=== PATIENT | male | born 1975 | race African-American/Black ===

== ENCOUNTER 2016-11-28 06:56 | Emergency (ER) | payer OTHER ==
[2016-11-28] MEDS ORDERED: predniSONE 20 MG TAB ONE (07:53)
[2016-11-28] MEDS ORDERED: AMOXicillin 250 MG CAP ONE (07:53)
--- NOTE | 2016-11-28 07:56 | RAD ---
PA AND LATERAL CHEST: Date: 11/28/16 INDICATION: Shortness of breath. Dyspnea. Productive cough. COMPARISON: Prior single view of chest dated 05/17/16. IMPRESSION: 1. Low lung volumes. 2. Left basilar atelectasis likely related to poor inspiration. COMMENTS: No air space consolidation or pleural effusion is evident. No acute osseous abnormalities noted. POS: [facility]
--- NOTE | 2016-11-28 08:02 | ERRECORD ---
[facility] EMERGENCY RECORD HPI SHORTNESS OF BREATH (07:05 JLOY) CHIEF COMPLAINT: Patient presents for evaluation of shortness of breath, Patient presents for evaluation of Pt with 2 days of sore throat. Yesterday developed cough and SOB. Worse this am with chest tightness. Coughing up white sputum. HISTORIAN: History provided by patient. LOCATION: Symptoms are generalized. QUALITY: Symptoms described as tightness, Symptoms described as wheezing, Pain is dull in nature. TIME COURSE: Gradual onset of symptoms, Symptoms are worsening. ASSOCIATED WITH: No associated chills, Associated with cough, Associated with chest pain, Associated with dyspnea on exertion, Associated with fever, subjective, No associated nausea, Associated with upper respiratory infection, No associated vomiting. EXACERBATED BY: Patient's condition exacerbated by nothing. RELIEVED BY: Patient's condition relieved by nothing. ROS (07:06 JLOY) CONSTITUTIONAL: Historian denies chills, reports fever. EYES: Historian denies eye pain, denies eye redness, denies eye discharge. ENT: Historian denies rhinorrhea, reports sore throat. CARDIOVASCULAR: Historian reports chest pain. RESPIRATORY: Historian reports cough, reports shortness of breath, reports sputum. GI: Historian denies abdominal pain, denies diarrhea, denies nausea, denies vomiting. GENITOURINARY MALE: Historian denies dysuria, denies hematuria. PAST MEDICAL HISTORY MEDICAL HISTORY: Flu vaccine up to date, Tetanus immunization up to date, Pneumococcal vaccine not up to date, Past medical history includes neurological disease, ischemic cerebral vascular accident, generalized seizures, stomach ulcer. (07:07 BDON) MALE SURGICAL HISTORY: right thumb surgery. (07:07 BDON) PSYCHIATRIC HISTORY: no history of suicidal ideations, No history of suicide attempts, No history of hallucinations, No history of homicidal ideations, No history of violence towards others, No previous psychiatric history. (07:07 BDON) SOCIAL HISTORY: Patient currently uses tobacco, smokes cigarettes, Patient drinks socially, every week, Patient denies drug use,. Lives at home, alone,. (07:07 BDON) Patient currently uses tobacco, smokes cigarettes, daily, Patient smokes 1 pack per day. (07:29 JLOY) NOTES: Nursing records reviewed, Agree with nursing records. (07:29 JLOY) &a-1R&a+25V*p+0X*[id number]*c202B*c15G*c2P*p-0X&a-25V&a+1R Name: Benjamin Marley : 1975 M41 MedRec: [id number] AcctNum: [id number] Prepared: Sat Nov 28, 2016 08:10 by Interface Page 1 of 3 pMD [facility] EMERGENCY RECORD KNOWN ALLERGIES No Known Allergies (Unconfirmed) No Known Drug Allergies No Known Drug Intolerances (Unconfirmed) CURRENT MEDICATIONS (07:05 BDON) unknown seizure medication VITAL SIGNS VITAL SIGNS: Pulse: 94, Resp: 38, Temp: 99.6 (Oral), Pain: 9, O2 sat: 97, Time: 11/28/2016 06:58. (06:58 MBOS) BP: 140/95, Pulse: 96, Resp: 23, O2 sat: 97neb, Time: 11/28/2016 07:05. (07:05 EPIE) BP: 130/73, Pulse: 95, Resp: 24, O2 sat: 94 on Room Air, Time: 11/28/2016 07:29. (07:29 EPIE) BP: 131/71, Pulse: 94, Resp: 23, Temp: 99.6 ORAL, Pain: 8, O2 sat: 95 on ra, Time: 11/28/2016 07:59. (07:59 EPIE) PHYSICAL EXAM (07:06 JLOY) CONSTITUTIONAL: Vital Signs Reviewed, Patient appears non toxic, Patient alert and oriented to person, place and time. EYES: Eye exam included findings of eyelids normal to inspection, Pupils equally round and reactive to light, Conjunctiva normal. ENT: Pharynx exam normal, Uvula exam normal, Tonsil exam normal, Mouth exam normal, mucous membranes moist. NECK: Neck exam included findings of normal range of motion, Trachea midline. RESPIRATORY CHEST: Respiratory exam included findings of no respiratory distress, Wheezing present, scattered, Breath sounds diminished, to bilateral upper lobes, to bilateral lower lobes. CARDIOVASCULAR: Cardiovascular exam included findings of heart rate regular rate and rhythm, Heart sounds normal. ABDOMEN MALE: Abdominal exam included findings of abdomen nontender, Bowel sounds normal. UPPER EXTREMITY: Upper extremity exam included findings of inspection normal, Radial pulse normal, no cyanosis, no clubbing, no edema. LOWER EXTREMITY: Lower extremity exam included findings of inspection normal, no edema, no calf tenderness. NEURO: Austin coma scale 15, Neuro exam findings include patient oriented to person, place and time, Speech normal. SKIN: Skin exam included findings of skin warm, dry, and normal in color, no rash. PSYCHIATRIC: Normal affect. MEDICATION ADMINISTRATION SUMMARY Drug Name: DuoNeb, Dose Ordered: 1 amp(s), Route: Inhaler, Status: &a-1R&a+25V*p+0X*[id number]*c202B*c15G*c2P*p-0X&a-25V&a+1R Name: Benjamin Marley : 1975 M41 MedRec: [id number] AcctNum: [id number] Prepared: Sat Nov 28, 2016 08:10 by Interface Page 2 of 3 pMD [facility] EMERGENCY RECORD Canceled, Time: 07:09 11/28/2016, Drug Name: predniSONE oral, Dose Ordered: 60 mg, Route: Oral, Status: Given, Time: 08:00 11/28/2016, Drug Name: amoxicillin, Dose Ordered: 500 mg, Route: Oral, Status: Given, Time: 08:00 11/28/2016, Drug Name: *DuoNeb, Dose Ordered: 3 mL, Route: Nebulize, Status: Given, Time: 07:05 11/28/2016, *Additional information available in notes, Detailed record available in Medication Service section. DOCTOR NOTES (07:28 JLOY) TEXT: Pt denied improvement but no wheezes on exam now and improved air flow. Mildly increased WOB but better than initial. Pt now acknowledges daily cough for at least the last month. PROBLEM LIST No recorded problems DIAGNOSIS (07:51 JLOY) FINAL: PRIMARY: Acute bronchitis. PRESCRIPTION (07:51 JLOY) albuterol sulfate inhalation: HFA AEROSOL WITH ADAPTER (GM) : 90 mcg : INHALATION : Quantity: 2 Unit: puff(s) Route: INHALATION Schedule: every 4 hours prn Dispense: 1 May substitute. Refills: No Refills . NOTES: Please dispense one spacer to be used with every use of the inhaler No Refills. amoxicillin: CAPSULE (HARD, SOFT, ETC.) : 500 mg : ORAL : Quantity: 500 Unit: mg Route: ORAL Schedule: 3 times a day Dispense: 10 DAYS May substitute. Refills: No Refills . NOTES: No Refills. predniSONE oral: TABLET : 20 mg : ORAL : Quantity: 40 Unit: mg Route: ORAL Schedule: once a day Dispense: 5 DAYS May substitute. Refills: No Refills . NOTES: ^s=No Refills No Refills. DISPOSITION PATIENT: Disposition Type: Discharge, Disposition: *Discharge Home. (07:51 AYLA) Patient left the department. (08:04 VEE) Silverio: TIKA=ZENIA Esparza, Loli BAXTER=ZENIA Estrada, Judy AGUILA=MD Kris, Marshall JUAREZ=ZENIA Vasquez, Natalia &a-1R&a+25V*p+0X*[id number]*c202B*c15G*c2P*p-0X&a-25V&a+1R Name: Benjamin Marley Kim : 1975 M41 MedRec: [id number] AcctNum: [id number] Prepared: Yosef Nov 28, 2016 08:10 by Interface Page 3 of 3 pMD MTDD
--- NOTE | 2016-11-28 08:06 | PICIS ---
[facility] EMERGENCY RECORD TRIAGE (07:02 MBOS) TRIAGE NOTES: shortness of breath, productive cough. (07:02 MBOS) PATIENT: NAME: Benjamin Marley, AGE: 41, GENDER: male, : Sat 1975, TIME OF GREET: Sat Nov 28, 2016 06:57, PREFERRED LANGUAGE: Mohawk, ETHNICITY: Not or , ECODE BILLING MAP: [facility] ER, SSN: [id number], Zip Code: [address], KG WEIGHT: [phone], PHONE: , , , PERSON ID: [id number], PCP: Estevan NAVARRETE POLLACHI. (07:02 MBOS) COMPLAINT: SOB. (07:02 MBOS) ADMISSION: URGENCY: 3 Urgent, ADMISSION SOURCE: Home, TRANSPORT: CAR, BED: ER -04. (07:02 MBOS) ASSESSMENT: Assessment: Productive cough, described as white, chest pain with bodyaches, Symptoms began 2 days ago. (07:07 BDON) SIRS SCORING: Heart Rate 55-109 (0), Temp range 96.8-101.1 (0), respiratory rate 35-49 (3). (07:07 BDON) TREATMENTS IN PROGRESS: Treatments given Prehospital: none. (07:07 BDON) PROVIDERS: TRIAGE NURSE: Natalia Vasquez RN. (07:02 MBOS) VITAL SIGNS: Pulse 94, Resp 38, Temp 99.6, (Oral), Pain 9, O2 Sat 97, Time 11/28/2016 06:58. (06:58 MBOS) PREVIOUS VISIT ALLERGIES: No Known Drug Intolerances. (07:02 MBOS) No Known Drug Intolerances. (07:07 BDON) KNOWN ALLERGIES No Known Allergies (Unconfirmed) No Known Drug Allergies No Known Drug Intolerances (Unconfirmed) CURRENT MEDICATIONS (07:05 BDON) unknown seizure medication VITAL SIGNS VITAL SIGNS: Pulse: 94, Resp: 38, Temp: 99.6 (Oral), Pain: 9, O2 sat: 97, Time: 11/28/2016 06:58. (06:58 MBOS) BP: 140/95, Pulse: 96, Resp: 23, O2 sat: 97neb, Time: 11/28/2016 07:05. (07:05 EPIE) BP: 130/73, Pulse: 95, Resp: 24, O2 sat: 94 on Room Air, Time: 11/28/2016 07:29. (07:29 EPIE) BP: 131/71, Pulse: 94, Resp: 23, Temp: 99.6 ORAL, Pain: 8, O2 sat: 95 on ra, Time: 11/28/2016 07:59. (07:59 EPIE) NURSING ASSESSMENT: HEAD-TO-TOE (07:03 EPIE) CONSTITUTIONAL: Patient arrives ambulatory, Unsteady gait, Assistance to cart, History obtained from patient, Patient appears, uncomfortable, Patient cooperative, Patient alert, Oriented to person, place and time, Skin warm, Skin dry, Skin normal in color, Mucous membranes pink, Mucous &a-1R&a+25V*p+0X*p3604K*c202B*c15G*c2P*p-0X&a-25V&a+1R Name: Benjamin Marley : 1975 M41 MedRec: [id number] AcctNum: [id number] Prepared: Sat Nov 28, 2016 08:16 by Interface Page 1 of 9 pMD [facility] EMERGENCY RECORD membranes moist, Patient is well-groomed, shortness of breath, productive cough. Reports CP with breathing and coughing. PAIN: aching pain, midsternal chest, Onset of pain 11/28/2016, on a scale 0-10 patient rates pain as 9. SKIN: Skin assessment findings include skin warm, Skin dry, Skin normal in color. NEURO: Able to close eyes, Face symmetrical, Speech normal. ENT: Nasal assessment findings include nose normal to inspection, Sinuses normal, Nasal mucosa normal, Congestion, bilaterally, Mouth and throat assessment findings include mouth inspection normal, Uvula normal, Tonsils normal, Mucous membranes pink, and moist, Able to swallow, Speech normal, Notes: Pt reports sore throat started after cough. RESPIRATORY/CHEST: Lungs auscultated, Breath sounds with wheezing, Respiratory assessment findings include respiratory effort easy, Converses, in short phrases, Neck and chest exam findings include trachea midline, Chest expansion equal, Chest movement symmetrical, Associated with cough, productive of, yellow sputum. CARDIOVASCULAR: Cardiovascular assessment findings include heart rate normal, Heart sounds normal, S1, S2. ABDOMEN: Abdomen assessment findings include abdomen symmetrical, Abdomen soft, no associated nausea, no associated vomiting, no associated diarrhea. NURSING PROCEDURE: BREAD MOLDER (07:06 EPIE) BREAD MOLDER: Patient placed on saw tailer, Patient placed on non-invasive blood pressure monitor, with disposable blood pressure cuff applied, Patient placed on continuous pulse oximetry, Adult/pediatric oxisensor applied. FOLLOW-UP: After procedure, alarms set and on, After procedure, patient tolerating monitoring. NURSING PROCEDURE: DISCHARGE NOTE (07:59 EPIE) DISCHARGE: Patient discharged to home, ambulating without assistance, friend driving, accompanied by friend, Summary of Care printed/ provided, Discharge instructions given to patient, Simple or moderate discharge teaching performed, Prescriptions given and instructions on side effects given, Name of prescription(s) given: amoxcillin, prednisone, albuterol, Above person(s) verbalized understanding of discharge instructions and follow-up care. BELONGINGS: Belongings and valuables with patient upon arrival to the Emergency Department include:, Belongings and valuables with patient at time of discharge include:, Belongings remain with patient, Valuables remain with patient. VITAL SIGNS: BP: 131, / 71, Pulse: 94, Resp: 23, Temp: 99.6 ORAL, Pain: 8, O2 sat: 95, on: ra. NURSING PROCEDURE: EKG CHART (07:02 EPIE) &a-1R&a+25V*p+0X*h2621K*c202B*c15G*c2P*p-0X&a-25V&a+1R Name: Benjamin Marley : 1975 M41 MedRec: [id number] AcctNum: [id number] Prepared: Sat Nov 28, 2016 08:16 by Interface Page 2 of 9 pMD [facility] EMERGENCY RECORD EK lead EKG performed on the left chest, done by Loli KNUTSON, first EKG, Notes: EKG @ 0700. FOLLOW-UP: After procedure, EKG for interpretation given to Dr. Kris KELLEY. NURSING PROCEDURE: ENT (07:13 EPIE) PATIENT IDENTIFIER: Patient actively involved in identification process, Patient's identity verified by patient stating name. ENT: Nasal swab collected, labeled in the presence of the patient and sent to lab for testing of, influenza A, influenza B. FOLLOW-UP: After procedure, no further bleeding from nose. NURSING PROCEDURE: NURSE NOTES (07:31 EPIE) NURSES NOTES: Notes: Patient resting with family at bedside. Pt denies feeling better at this time after neb. Pt has decreased wheezing. Awaiting results at this time. ERMD made aware. NURSING PROCEDURE: RESPIRATORY INTERVENTIONS RESPIRATORY INTERVENTIONS: Pre-intervention breath sounds with wheezing, Pre-intervention oxygen saturation 94%, single pulse oximetry reading, Patient given ALBUTEROL with ATROVENT, Single dose nebulizer. (07:05 EPIE) FOLLOW-UP: After procedure, oxygen saturation 96%. (07:21 EPIE) NURSING PROCEDURE: TRANSPORT TO TESTS TRANSPORT TO TESTS: Patient transported to x-ray, via wheelchair, Accompanied by x-ray communications tower technician. (07:13 EPIE) Patient transported to x-ray, Accompanied by x-ray communications tower technician, Patient arrived in location at 0713, Patient departed location at 0721. (07:23 [facility]) FOLLOW-UP: After procedure, patient returned to emergency department. (07:20 EPIE) ORDER DETAILS Order Name: EKG 12 Lead in Emergency Room, Status: Canceled, Time: 07:08 11/28/2016, User: VEE, - Ordered for: MD Ponce Joshua, - Entered by: ZENIA Esparza Bettye - Sat Nov 28, 2016 07:04, - Quantity: 1, Order Name: EKG 12 Lead in Emergency Room, Status: Active, Time: 07:04 11/28/2016, User: AYLA, - Ordered for: MD Ponce Joshua, - Entered by: MD Ponce Joshua - Sat Nov 28, 2016 07:04, - Quantity: 1, Order Name: ERRT * Smal Vol Neb Initial Trmt, Status: Active, Time: 07:04 11/28/2016, User: AYLA, - Ordered for: MD Ponce Joshua, - Entered by: MD Ponce Joshua - Sat Nov 28, 2016 07:04, - Quantity: 1, &a-1R&a+25V*p+0X*s8951Y*c202B*c15G*c2P*p-0X&a-25V&a+1R Name: Benjamin Marley : 1975 M41 MedRec: [id number] AcctNum: [id number] Prepared: Sat Nov 28, 2016 08:16 by Interface Page 3 of 9 pMD [facility] EMERGENCY RECORD Order Name: ERRT * Smal Vol Neb Initial Trmt, Status: Canceled, Time: 07:08 11/28/2016, User: TIKA, - Ordered for: MD Ponce Joshua, - Entered by: ZENIA Esparza, Loli - Sat Nov 28, 2016 07:04, - Quantity: 1, Order Name: ERRT Pulse Oximeter ER, Status: Active, Time: 07:04 11/28/2016, User: AYLA, - Ordered for: MD Ponce Joshua, - Entered by: MD Ponce Joshua - Yosef Nov 28, 2016 07:04, - Quantity: 1, Order Name: Influenza A&B Ag Screen, Status: Active, Time: 07:07 11/28/2016, User: AYLA, - Ordered for: MD Ponce Joshua, - Entered by: MD Ponce Joshua - Yosef Nov 28, 2016 07:07, - Quantity: 1, Order Name: XR Chest Pa & Lat STANDARD, Status: Active, Time: 07:04 11/28/2016, User: AYLA, - Ordered for: MD Ponce Joshua, - Entered by: MD Ponce Joshua - Sat Nov 28, 2016 07:04, - Quantity: 1. MEDICATION ADMINISTRATION SUMMARY Drug Name: DuoNeb, Dose Ordered: 1 amp(s), Route: Inhaler, Status: Canceled, Time: 07:09 11/28/2016, Drug Name: predniSONE oral, Dose Ordered: 60 mg, Route: Oral, Status: Given, Time: 08:00 11/28/2016, Drug Name: amoxicillin, Dose Ordered: 500 mg, Route: Oral, Status: Given, Time: 08:00 11/28/2016, Drug Name: *DuoNeb, Dose Ordered: 3 mL, Route: Nebulize, Status: Given, Time: 07:05 11/28/2016, *Additional information available in notes, Detailed record available in Medication Service section. MEDICATION SERVICE amoxicillin: Order: amoxicillin (amoxicillin trihydrate) - Dose: 500 mg : Oral Ordered by: Marshall Ponce MD Entered by: Marshall Ponce MD Sat Nov 28, 2016 07:50 , Acknowledged by: Judy Estrada RN Sat Nov 28, 2016 07:51 Documented as given by: Judy Estrada RN Sat Nov 28, 2016 08:00 Patient, Medication, Dose, Route and Time verified prior to administration. Amount given: 500mg, Site: Medication administered P.O., Correct patient, time, route, dose and medication confirmed prior to administration, Patient advised of actions and side-effects prior to administration, Allergies confirmed and medications reviewed prior to administration. DuoNeb: Order: DuoNeb (ipratropium bromide/albuterol sulfate) - Dose: 3 mL : Nebulize Notes: (0.5mg Ipratropium Cameron/3mg Albuterol Sulfate = 3ml) &a-1R&a+25V*p+0X*y4676Z*c202B*c15G*c2P*p-0X&a-25V&a+1R Name: Benjamin Marley : 1975 1 MedRec: [id number] AcctNum: [id number] Prepared: Sat Nov 28, 2016 08:16 by Interface Page 4 of 9 D [facility] EMERGENCY RECORD Ordered by: Marshall Ponce MD Entered by: Marshall Ponce MD Sat Nov 28, 2016 07:04 Documented as given by: Judy Estrada RN Sat Nov 28, 2016 07:05 Patient, Medication, Dose, Route and Time verified prior to administration. Amount given: 3ml, Site: Medication administered via Hand-held nebulizer, With oxygen, Correct patient, time, route, dose and medication confirmed prior to administration, Patient advised of actions and side-effects prior to administration, Allergies confirmed and medications reviewed prior to administration. predniSONE oral: Order: predniSONE oral (prednisone) - Dose: 60 mg : Oral Ordered by: Marshall Ponce MD Entered by: Marshall Ponce MD Sat Nov 28, 2016 07:50 , Acknowledged by: Judy Estrada RN Sat Nov 28, 2016 07:50 Documented as given by: Judy Estrada RN Sat Nov 28, 2016 08:00 Patient, Medication, Dose, Route and Time verified prior to administration. Amount given: 60mg, Site: Medication administered P.O., Correct patient, time, route, dose and medication confirmed prior to administration, Patient advised of actions and side-effects prior to administration, Allergies confirmed and medications reviewed prior to administration. (CANCELED) DuoNeb: Order: DuoNeb (ipratropium bromide/albuterol sulfate) - Dose: 1 amp(s) : Inhaler Schedule: Now Ordered by: Marshall Ponce MD Entered by: Loli Esparza RN Sat Nov 28, 2016 07:04 Canceled by: Loli Esparza RN. Sat Nov 28, 2016 07:09 Cancel reason: duplicate order. HPI SHORTNESS OF BREATH (07:05 [facility]) CHIEF COMPLAINT: Patient presents for evaluation of shortness of breath, Patient presents for evaluation of Pt with 2 days of sore throat. Yesterday developed cough and SOB. Worse this am with chest tightness. Coughing up white sputum. HISTORIAN: History provided by patient. LOCATION: Symptoms are generalized. QUALITY: Symptoms described as tightness, Symptoms described as wheezing, Pain is dull in nature. TIME COURSE: Gradual onset of symptoms, Symptoms are worsening. ASSOCIATED WITH: No associated chills, Associated with cough, Associated with chest pain, Associated with dyspnea on exertion, Associated with fever, subjective, No associated nausea, Associated with upper respiratory infection, No associated vomiting. EXACERBATED BY: Patient's condition exacerbated by nothing. RELIEVED BY: Patient's condition relieved by nothing. &a-1R&a+25V*p+0X*t5920M*c202B*c15G*c2P*p-0X&a-25V&a+1R Name: Benjamin Marley : 1975 M41 MedRec: [id number] AcctNum: [id number] Prepared: Sat Nov 28, 2016 08:16 by Interface Page 5 of 9 pMD [facility] EMERGENCY RECORD ROS (07:06 [facility]) CONSTITUTIONAL: Historian denies chills, reports fever. EYES: Historian denies eye pain, denies eye redness, denies eye discharge. ENT: Historian denies rhinorrhea, reports sore throat. CARDIOVASCULAR: Historian reports chest pain. RESPIRATORY: Historian reports cough, reports shortness of breath, reports sputum. GI: Historian denies abdominal pain, denies diarrhea, denies nausea, denies vomiting. GENITOURINARY MALE: Historian denies dysuria, denies hematuria. PAST MEDICAL HISTORY MEDICAL HISTORY: Flu vaccine up to date, Tetanus immunization up to date, Pneumococcal vaccine not up to date, Past medical history includes neurological disease, ischemic cerebral vascular accident, generalized seizures, stomach ulcer. (07:07 BDON) MALE SURGICAL HISTORY: right thumb surgery. (07:07 BDON) PSYCHIATRIC HISTORY: no history of suicidal ideations, No history of suicide attempts, No history of hallucinations, No history of homicidal ideations, No history of violence towards others, No previous psychiatric history. (07:07 BDON) SOCIAL HISTORY: Patient currently uses tobacco, smokes cigarettes, Patient drinks socially, every week, Patient denies drug use,. Lives at home, alone,. (07:07 BDON) Patient currently uses tobacco, smokes cigarettes, daily, Patient smokes 1 pack per day. (07:29 JL) NOTES: Nursing records reviewed, Agree with nursing records. (07:29 JL) PHYSICAL EXAM (07:06 JLOY) CONSTITUTIONAL: Vital Signs Reviewed, Patient appears non toxic, Patient alert and oriented to person, place and time. EYES: Eye exam included findings of eyelids normal to inspection, Pupils equally round and reactive to light, Conjunctiva normal. ENT: Pharynx exam normal, Uvula exam normal, Tonsil exam normal, Mouth exam normal, mucous membranes moist. NECK: Neck exam included findings of normal range of motion, Trachea midline. RESPIRATORY CHEST: Respiratory exam included findings of no respiratory distress, Wheezing present, scattered, Breath sounds diminished, to bilateral upper lobes, to bilateral lower lobes. CARDIOVASCULAR: Cardiovascular exam included findings of heart rate regular rate and rhythm, Heart sounds normal. ABDOMEN MALE: Abdominal exam included findings of abdomen nontender, Bowel sounds normal. UPPER EXTREMITY: Upper extremity exam included findings of &a-1R&a+25V*p+0X*n2017H*c202B*c15G*c2P*p-0X&a-25V&a+1R Name: Benjamin Marley : 1975 M41 MedRec: [id number] AcctNum: [id number] Prepared: Sat Nov 28, 2016 08:16 by Interface Page 6 of 9 pMD [facility] EMERGENCY RECORD inspection normal, Radial pulse normal, no cyanosis, no clubbing, no edema. LOWER EXTREMITY: Lower extremity exam included findings of inspection normal, no edema, no calf tenderness. NEURO: [place] coma scale 15, Neuro exam findings include patient oriented to person, place and time, Speech normal. SKIN: Skin exam included findings of skin warm, dry, and normal in color, no rash. PSYCHIATRIC: Normal affect. EVENTS TRANSFER: Triage to Emergency Emergency Room -04. (Sat Nov 28, 2016 07:02 MBOS) Removed from Emergency Emergency Room -04. (08:04 EPIE) DOCTOR NOTES (07:28 JLOY) TEXT: Pt denied improvement but no wheezes on exam now and improved air flow. Mildly increased WOB but better than initial. Pt now acknowledges daily cough for at least the last month. PROBLEM LIST No recorded problems DIAGNOSIS (07:51 JLOY) FINAL: PRIMARY: Acute bronchitis. DISPOSITION PATIENT: Disposition Type: Discharge, Disposition: *Discharge Home. (07:51 JLOY) Patient left the department. (08:04 EPIE) INSTRUCTION (07:51 JLOY) DISCHARGE: BRONCHITIS, ABX [place] (ADULT). FOLLOWUP: Estevan NAVARRETE, [facility], Internal Medicine, [address] [place] [id number], [phone], Follow up with Primary Care Physician in 7-10 days. PRESCRIPTION (07:51 JLOY) albuterol sulfate inhalation: HFA AEROSOL WITH ADAPTER (GM) : 90 mcg : INHALATION : Quantity: 2 Unit: puff(s) Route: INHALATION Schedule: every 4 hours prn Dispense: 1 May substitute. Refills: No Refills . NOTES: Please dispense one spacer to be used with every use of the inhaler No Refills. amoxicillin: CAPSULE (HARD, SOFT, ETC.) : 500 mg : ORAL : Quantity: 500 Unit: mg Route: ORAL Schedule: 3 times a day Dispense: 10 DAYS May substitute. Refills: No Refills . NOTES: No Refills. &a-1R&a+25V*p+0X*m0559U*c202B*c15G*c2P*p-0X&a-25V&a+1R Name: Benjamin Marley : 1975 M41 MedRec: [id number] AcctNum: [id number] Prepared: Sat Nov 28, 2016 08:16 by Interface Page 7 of 9 pMD [facility] EMERGENCY RECORD predniSONE oral: TABLET : 20 mg : ORAL : Quantity: 40 Unit: mg Route: ORAL Schedule: once a day Dispense: 5 DAYS May substitute. Refills: No Refills . NOTES: ^s=No Refills No Refills. IMAGING *DISCHARGE INSTRUCTIONS RECEIPT: Image captured from scanner. (08:02 EPIE) *SUPPLY CHARGE SHEET: Image captured from scanner. (08:04 EPIE) *EKG: Image captured from scanner. (08:04 EPIE) ADMIN (07:51 [facility]) DIGITAL SIGNATURE: MD Ponce Joshua. RESULTS (07:42 [facility]) MICROBIOLOGY: Influenza A&B Ag Screen: [id number] Collection DT: Sat Nov 28, 2016 07:14, See comment below , @ ER ROOM#: ER-04 Source: Nasal swab Spec Desc: , Influenza A Antigen: NEGATIVE for the , presence of , INFLUENZA A Antigen , Influenza B Antigen: NEGATIVE for the , presence of , INFLUENZA B Antigen , The rapid Flu A&B test can distinguish between influenza A , Influenza A&B Ag Screen See comment below , and B viruses, but it does not differentiate influenza , Influenza A&B Ag Screen See comment below , subtypes. , Influenza A&B Ag Screen See comment below , Influenza A&B Ag Screen See comment below , Influenza A&B Ag Screen See comment below , Influenza A&B Ag Screen See comment below , characteristics of this device with human specimens infected , Influenza A&B Ag Screen See comment below , with the 2008 H1N1 influenza virus have not been , Influenza A&B Ag Screen See comment below , established. For example: this test cannot distinguish , Influenza A&B Ag Screen See comment below , influenza infections caused by novel H1N1 influenza A , Influenza A&B Ag Screen See comment below , viruses versus seasonal influenza A viruses. , Influenza A&B Ag Screen See comment below , , Influenza A&B Ag Screen See comment below , A negative result does not exclude influenza virus , Influenza A&B Ag Screen See comment below , infection; therefore, if more conclusive testing is desired, , Influenza A&B Ag Screen See comment below , follow up confirmatory &a-1R&a+25V*p+0X*l1615S*c202B*c15G*c2P*p-0X&a-25V&a+1R Name: Benjamin Marley : 1975 [facility] [place] MedRec: [id number] AcctNum: [id number] Prepared: WedNov 28, 2016 08:16 by Interface Page 8 of 9 D [facility] EMERGENCY RECORD testing is warranted., Influenza A&B Ag Screen See comment below . Silverio: TIKA=ZENIA Esparza, Loli BAXTER=ZENIA Estrada, Judy AGUILA=MD Kris, Marshall VALDEZ=MO Chao Kim MBOS=ZENIA Vasquez, Natalia &a-1R&a+25V*p+0X*g5114I*c202B*c15G*c2P*p-0X&a-25V&a+1R Name: Benjamin Marley : 1975 [facility] [place] MedRec: [id number] AcctNum: [id number] Prepared: [facility] Nov 28, 2016 08:16 by Interface Page 9 of 9 D [facility] MEDICATION RECONCILIATION You were seen in the Emergency Department on: Sat Nov 28, 2016 KNOWN ALLERGIES No Known Allergies (Unconfirmed) No Known Drug Allergies No Known Drug Intolerances (Unconfirmed) MEDICATIONS GIVEN WHILE IN THE EMERGENCY DEPARTMENT DuoNeb (ipratropium bromide/albuterol sulfate) - Dose: 3 milliliter(s) : Nebulize predniSONE oral (prednisone) - Dose: 60 milligram(s) : Oral amoxicillin (amoxicillin trihydrate) - Dose: 500 milligram(s) : Oral HOME MEDICATIONS CONTINUE PRESCRIBED unknown seizure medication Continue as prescribed PRESCRIPTIONS (3) Printed (3) albuterol sulfate inhalation : HFA AEROSOL WITH ADAPTER (GM) : 90 mcg : INHALATION Quantity: 2, Unit: puff(s), Route: INHALATION, Schedule: every 4 hours prn, Dispense: 1 amoxicillin : CAPSULE (HARD, SOFT, ETC.) : 500 mg : ORAL Quantity: 500, Unit: milligram(s), Route: ORAL, Schedule: 3 times a day, Dispense: 10 DAYS &a-1R&a+25V*p+0X*f3567I*c202B*c15G*c2P*p-0X&a-25V&a+1R Name: [place] : 1975 M41 MedRec: [id number] AcctNum: [id number] Prepared: Yosef Nov 28, 2016 08:16 by Interface pMD ANDID
== END 2016-11-28 07:59 | disposition home or self-care (01) ==
LOC: NAV ERS 06:56
DX: J20.9 Acute bronchitis, unspecified (principal); F17.210 Nicotine dependence, cigarettes, uncomplicated
CPT/HCPCS: 71020; 93005; 94640; 94760; J7506; J7620

== ENCOUNTER 2016-11-30 14:01 | Outpatient (CLI) | payer OTHER ==
[2016-11-30 15:42] LABS: #Lymphocytes 1.7 thou/uL (1.20-3.40); #Monocytes 0.4 thou/uL (0.11-0.59); #Neutrophils 6.7 thou/uL (1.40-6.50); %Basophils 0.3 % (0.0-1.0); %Eosinophils 0.3 % (0.0-10.0); %Lymphocytes 18.6 % (21.0-51.0); %Monocytes 4.9 % (0.0-10.0); Hematocrit 46.9 % (42.0-52.0); Mean Platelet Volume 6.7 fL (7.4-10.4); Red Blood Cell (RBC) Count 6.64 mill/uL (4.70-6.10); White Blood Cell (WBC) Count 8.9 thou/uL (4.8-10.8)
--- NOTE | 2016-12-01 08:19 | RAD ---
FRONTAL AND LATERAL IMAGING OF THE CHEST: Date: 11-30-16 Comparison: 11-28-16 History: Cough and acute bronchitis. FINDINGS: Increased linear density noted in both lung bases, stable. No pneumothorax, pleural fluid, focal co nsolidation or alveolar edema. IMPRESSION: Mild increased linear density in both lung bases, likely on the basis of volume loss. No lobar cons olidation or alveolar edema. POS: H
== END 2016-11-30 14:02 | disposition home or self-care (01) ==
LOC: NAV LAB 14:01
PROVIDERS: ATTEND Internal Medicine
DX: J20.9 Acute bronchitis, unspecified (principal)
CPT/HCPCS: 36415; 71020; 85025

== ENCOUNTER 2016-12-20 02:34 | Emergency (ER) | payer OTHER ==
[2016-12-20] MEDS ORDERED: Lorazepam 2 MG/ML VIAL ONE (03:14)
[2016-12-20 03:21] LABS: #Basophils 0.1 thou/uL (0.0-0.2); #Eosinphils 0.3 thou/uL (0.0-0.7); #Lymphocytes 5.2 thou/uL (1.20-3.40); #Monocytes 0.6 thou/uL (0.11-0.59); #Neutrophils 4.7 thou/uL (1.40-6.50); %Basophils 0.8 % (0.0-1.0); %Eosinophils 2.5 % (0.0-10.0); %Lymphocytes 47.5 % (21.0-51.0); %Monocytes 5.6 % (0.0-10.0); Hematocrit 46.3 % (42.0-52.0); Mean Platelet Volume 6.2 fL (7.4-10.4); Microcytosis MODERATE=15-30 cells (100X) (0-5/hpf); Ovalocytes SLIGHT = 2-5 cells (100X) (0-1/hpf); Red Blood Cell (RBC) Count 6.65 mill/uL (4.70-6.10); Tear Drops SLIGHT = 2-5 cells (100X) (0-1/hpf); White Blood Cell (WBC) Count 10.8 thou/uL (4.8-10.8)
[2016-12-20 03:38] LABS: Troponin I 0.094 ng/mL (< 0.028)
[2016-12-20 03:40] LABS: ALT (SGPT) 32 U/L (0-55); AST (SGOT) 26 U/L (5-34); Acetaminophen Less than 3.0 mcg/mL (10.0-30.0); Alkaline Phosphatase 69 U/L (40-150); Anion Gap 21 mmol/L (10-20); BUN (Urea Nitrogen) 15 mg/dL (8.9-20.6); Bilirubin, Total 0.6 mg/dL (0.2-1.2); CK (CPK) 282 U/L (30-200); Calc. Creatinine Clearance 0 mL/min (70-130); Calcium 9.4 mg/dL (7.8-10.44); Carbon Dioxide 19 mmol/L (22-29); Chloride 107 mmol/L (98-107); Estimated GFR-MDRD Greater than 90; Globulin 3.6 g/dL (2.4-3.5); Protein, Total 8.2 g/dL (6.0-8.3); Salicylate Less than 5.0 mg/dL (15.0-30.0)
[2016-12-20 04:28] LABS: Bilirubin Negative (Negative); Blood, Urine Negative (Negative); Glucose, Urine (Dipstick) Negative (Negative); Ketone, Urine Negative (Negative); Nitrite Negative (Negative); Protein, Urine (Dipstick) Negative (Neg-Trace); Urobilinogen 0.2 mg/dL (0.2-1.0)
[2016-12-20 04:29] LABS: Bacteria/HPF Rare-Few HPF (None Seen); RBC/HPF None Seen HPF (0-3); Squamous Epithelial 0-3 HPF (0-3)
[2016-12-20 04:37] LABS: Methadone Not Detected (NotDetected); Methamphetamine Not Detected (NotDetected)
--- NOTE | 2016-12-20 05:29 | ERRECORD ---
[facility] EMERGENCY RECORD ADMIN (02:41 ABWA) MERGE: Ambulance Sun Dec 20, 2016 02:23. HPI ALCOHOL ABUSE/SUBSTANCE ABUSE CHIEF COMPLAINT: Patient presents for evaluation of alcohol abuse, Patient presents for evaluation of mental status changes, Patient presents for evaluation of Pt was drinking an unknown amount this eveing and became weak and unsteady with a few episodes of confusion. Pt then went out with friends. Called girlfriend and reported he had had a seizure and was coming home. On arrival pt was very groggy and mostly unresponsive so girlfriend called 911. No witnessed seizure activity. (02:47 JLOY) HISTORIAN: History provided by patient's family, Additional history obtained from EMS. (02:47 JLOY) LOCATION: No localizing symptoms. (02:47 JLOY) TIME COURSE: Patient unable to describe onset of symptoms, There has been no change in the patient's symptoms over time. (02:47 JLOY) ASSOCIATED WITH: Associated with agitation, Associated with seizures. (02:47 JLOY) EXACERBATED BY: Patient's condition exacerbated by history of previous episodes. (02:47 JLOY) RELIEVED BY: Patient's condition relieved by nothing. (02:47 JLOY) E/M CAVEAT: Emergency room caveat invoked due to intoxicated patient. (02:49 JLOY) PAST MEDICAL HISTORY MEDICAL HISTORY: Flu vaccine up to date, Tetanus immunization up to date, Pneumococcal vaccine not up to date, Past medical history includes neurological disease, ischemic cerebral vascular accident, generalized seizures, stomach ulcer. (02:41 ABWA) MALE SURGICAL HISTORY: right thumb surgery. (02:41 ABWA) PSYCHIATRIC HISTORY: no history of suicidal ideations, No history of suicide attempts, No history of hallucinations, No history of homicidal ideations, No history of violence towards others, No previous psychiatric history. (02:41 ABWA) SOCIAL HISTORY: Patient currently uses tobacco, smokes cigarettes, Patient drinks socially, every week, Patient denies drug use,. Lives at home, alone,. Patient currently uses tobacco, smokes cigarettes, daily, Patient smokes 1 pack per day. (02:41 ABWA) NOTES: Nursing records reviewed, Agree with nursing records. (02:53 JLOY) KNOWN ALLERGIES No Known Allergies (Unconfirmed) No Known Drug Allergies (Unconfirmed) No Known Drug Intolerances CURRENT MEDICATIONS &a-1R&a+25V*p+0X*x3151K*c202B*c15G*c2P*p-0X&a-25V&a+1R Name: Benjamin Marley : 1975 M41 MedRec: [id number] AcctNum: [id number] Prepared: Jane Dec 20, 2016 06:21 by Interface Page 1 of 3 pMD [facility] EMERGENCY RECORD No recorded medications VITAL SIGNS VITAL SIGNS: Pain: 0, Time: 12/20/2016 02:35. (02:35 ABGA) BP: 135/84, Pulse: 87, Resp: 21, Pain: 0, O2 sat: 94 on Room Air, Time: 12/20/2016 02:55. (02:55 [facility]) BP: 129/74, Pulse: 82, O2 sat: 97 on 2L Oxygen, Time: 12/20/2016 03:29. (03:29 [facility]) BP: 120/77, Pulse: 81, Resp: 18, O2 sat: 98 on 2L Oxygen, Time: 12/20/2016 04:35. (04:35 [facility]) BP: 137/87, Pulse: 80, Resp: 16, Temp: 98.6 (Tympanic), Pain: 0, O2 sat: 99 on 2L Oxygen, Time: 12/20/2016 05:25. (05:25 ABWA) PHYSICAL EXAM (02:49 [facility]) CONSTITUTIONAL: Vital signs reviewed, Patient, confused, responsive to painful stimuli, Pt lethargic. Responds to tactile stimulation but rare intelligible words. Mostly he pushes the examiner's hand away and then goes back to sleep. HEAD: Head exam included findings of head atraumatic, normocephalic. EYES: Eye exam included findings of eyelids normal to inspection, Pupils equally round and reactive to light, Conjunctiva, injected bilaterally. ENT: Ear exam included findings of, left external ear normal, right external ear normal, tympanic membrane with effusion on left, tympanic membrane with effusion on the right, Mouth exam included findings of, mucous membranes dry. NECK: Neck exam included findings of normal range of motion, Trachea midline, no jugular venous distention, no cervical adenopathy. RESPIRATORY CHEST: Respiratory exam included findings of no respiratory distress, Breath sounds clear, No wheezing, No rales, No rhonchi, Chest exam included findings of chest movement symmetrical. CARDIOVASCULAR: Cardiovascular exam included findings of heart rate regular rate and rhythm, Heart sounds normal. ABDOMEN MALE: Abdominal exam included findings of abdomen tender, Pt pushes the examiners hands away when palpated on any part of his abdomen but soft to touch and no guarding., Bowel sounds normal, no distension. BACK: Back exam included findings of normal inspection. UPPER EXTREMITY: Upper extremity exam included findings of inspection normal, Radial pulse normal, no cyanosis, no clubbing, no edema. LOWER EXTREMITY: Lower extremity exam included findings of inspection normal, no edema. NEURO: Vidya coma scale, Eye opening: (2) - To pain, Verbal: (3) - Inappropriate words, Motor: (5) - Localizes Pain, GCS Total: 10, Speech, slurred. &a-1R&a+25V*p+0X*[id number]*c202B*c15G*c2P*p-0X&a-25V&a+1R Name: Benjamin Marley : 1975 M41 MedRec: [id number] AcctNum: [id number] Prepared: Jane Dec 20, 2016 06:21 by Interface Page 2 of 3 pMD [facility] EMERGENCY RECORD SKIN: Skin exam included findings of skin warm, dry, and normal in color. MEDICATION ADMINISTRATION SUMMARY Drug Name: Keppra intravenous, Dose Ordered: 500 mg, Route: IV Piggy Back, Status: Held, Time: 05:53 12/20/2016, Drug Name: LORazepam injection, Dose Ordered: 1 mg, Route: IV Push, Status: Given, Time: 03:17 12/20/2016, Drug Name: sodium chloride 0.9 % intravenous, Dose Ordered: 1000 mL, Route: IV Fluid Infusion, Status: Given, Time: 02:45 12/20/2016, Detailed record available in Medication Service section. DOCTOR NOTES TEXT: Pt had an episode of posturing with his whole body and heavy breathing consistent with seizure-like activity from previous visits. Resolved after a couple minutes. Ativan ordered. (03:17 [facility]) Dr. Mahajan accepted the transfer to [facility] ER. (05:20 [facility]) PROBLEM LIST No recorded problems DIAGNOSIS (05:21 [facility]) FINAL: PRIMARY: Acute alcohol intoxication, ADDITIONAL: Seizure. PRESCRIPTION No recorded prescriptions DISPOSITION PATIENT: Disposition Type: Transfer, Disposition: Transfer to [facility]. (05:21 [facility]) Patient left the department. (06:20 [facility]) Silverio: LINETTE=ZENIA Jeffers, Chelsey AGUILA=MD Kris, aMrshall BELL=ZENIA Garcia, Lacy &a-1R&a+25V*p+0X*[id number]*c202B*c15G*c2P*p-0X&a-25V&a+1R Name: Benjamin Marley : 1975 M41 MedRec: [id number] AcctNum: [id number] Prepared: Jane Dec 20, 2016 06:21 by Interface Page 3 of 3 pMD MTDD
--- NOTE | 2016-12-20 05:35 | PICIS ---
[facility] EMERGENCY RECORD ADMIN MERGE: [facility] [place] Dec 20, 2016 02:23. (02:41 ABWA) TRIAGE (02:37 ABWA) TRIAGE NOTES: ETOH, VOMITING, PASSING OUT. (02:37 ABWA) PATIENT: NAME: Benjamin Marley, AGE: 41, GENDER: male, : Sat 1975, TIME OF GREET: Sun Dec 20, 2016 02:35, PREFERRED LANGUAGE: Occitan, ETHNICITY: Not or , ECODE BILLING MAP: [facility] ER, SSN: [id number], Zip Code: [address], KG WEIGHT: [phone], PHONE: , , , PERSON ID: [id number], PCP: Gaby Alonso /Jose Eduardo. (02:37 ABWA) COMPLAINT: ETOH. (02:37 ABWA) ADMISSION: URGENCY: 3 Urgent, ADMISSION SOURCE: Home, TRANSPORT: AMBULANCE - [facility], BED: ER -04. (02:37 ABWA) SIRS SCORING: ERMD IN ROOM TO EVAL AT THIS TIME. (02:41 ABWA) TREATMENTS IN PROGRESS: Site: RAC, Gauge: 22, IV: .9NS. (02:41 ABWA) PROVIDERS: TRIAGE NURSE: Chelsey Jeffers RN. (02:37 ABWA) VITAL SIGNS: Pain 0, Time 12/20/2016 02:35. (02:35 ABWA) PREVIOUS VISIT ALLERGIES: No Known Drug Allergies. (02:37 ABWA) No Known Drug Allergies. (02:41 ABWA) KNOWN ALLERGIES No Known Allergies (Unconfirmed) No Known Drug Allergies (Unconfirmed) No Known Drug Intolerances CURRENT MEDICATIONS No recorded medications VITAL SIGNS VITAL SIGNS: Pain: 0, Time: 12/20/2016 02:35. (02:35 ABWA) BP: 135/84, Pulse: 87, Resp: 21, Pain: 0, O2 sat: 94 on Room Air, Time: 12/20/2016 02:55. (02:55 [facility]) BP: 129/74, Pulse: 82, O2 sat: 97 on 2L Oxygen, Time: 12/20/2016 03:29. (03:29 [facility]) BP: 120/77, Pulse: 81, Resp: 18, O2 sat: 98 on 2L Oxygen, Time: 12/20/2016 04:35. (04:35 [facility]) BP: 137/87, Pulse: 80, Resp: 16, Temp: 98.6 (Tympanic), Pain: 0, O2 sat: 99 on 2L Oxygen, Time: 12/20/2016 05:25. (05:25 ABWA) NURSING ASSESSMENT: FALL RISK (05:00 [facility]) FALL RISK: Use of level of consciousness altering agents with mentation or cognitive changes (3), Neurologic diagnosis (3), Total score 6, Fall risk. HENDRICH II FALL RISK: Hendrich II Fall Risk assessment findings include patient confused, disoriented or impulsive(4), male(1). &a-1R&a+25V*p+0X*j0657V*c202B*c15G*c2P*p-0X&a-25V&a+1R Name: Benjamin Marley : 1975 1 MedRec: [id number] AcctNum: [id number] Prepared: Jane Dec 20, 2016 06:27 by Interface Page 1 of 11 D [facility] EMERGENCY RECORD NURSING ASSESSMENT: NEURO (02:45 ABWA) GCS: (5) Localizing response to pain:, (4) Confused conversation:, (2) Opening to response to pain:, Result: 11. NEURO: Pupils equally round and reactive to light, GCS:, Eye opening: (2) - To pain, Verbal: (3) - Inappropriate words, Motor: (5) - Localizes Pain, GCS Total: 10. ENT: Tinnitus described as. NURSING PROCEDURE: BEDSIDE SIRS TESTING (05:00 [facility]) SCORES: Heart Rate 55-109 (0), Temp range 96.8-101.1 (0), respiratory rate 12-24 (0), Latest WBC 3-14.9 (0), Mental Status altered: no (0). NURSING PROCEDURE: SKID MAN SKID MAN: Cardiac monitoring indicated for mental status changes, Patient placed on panel monitor, Heart rate: 87, showing normal sinus rhythm, with no ST segment changes, Patient placed on non-invasive blood pressure monitor, with disposable blood pressure cuff applied, Patient placed on continuous pulse oximetry, Adult/pediatric oxisensor applied, Oxygen saturation 94%. (02:37 [facility]) Cardiac monitoring indicated for mental status changes, Patient placed on panel monitor, Patient placed on non-invasive blood pressure monitor, Patient placed on continuous pulse oximetry. (02:37 ABWA) SAFETY: Side rails up, Cart/Stretcher in lowest position, Family at bedside, Call light within reach. (02:37 ABWA) NURSING PROCEDURE: IV (03:15 ABWA) IV SITE 1: IV therapy indicated for hydration, IV therapy indicated for medication administration, IV established, to the left antecubital, using a 20 gauge catheter, in one attempt, IV site prepped with choraprep. FOLLOW-UP SITE 1: After procedure, 2x3 ensure dressing applied. SAFETY: Side rails up, Cart/Stretcher in lowest position, Family at bedside, Call light within reach, Hospital ID band on. NURSING PROCEDURE: NEURO CHECK GCS/NEURO/PUPILS: [place] Coma Scale:, Eye opening: (2) - To pain, Verbal: (4) - Confused/disoriented, Motor: (5) - Localizes Pain, GCS Total: 11. (03:45 ABWA) [place] Coma Scale:, Eye opening: (2) - To pain, Verbal: (3) - Inappropriate words, Motor: (4) - Withdraws to Pain, GCS Total: 9. (03:50 ABWA) Vidya Coma Scale:, Eye opening: (2) - To pain, Verbal: (4) - Confused/disoriented, Motor: (5) - Localizes Pain, GCS Total: 11. (05:00 [facility]) NOTES: 3 additional staff were required to perform this &a-1R&a+25V*p+0X*v2625U*c202B*c15G*c2P*p-0X&a-25V&a+1R Name: Benjamin Marley Kim : 1975 M41 MedRec: [id number] AcctNum: [id number] Prepared: Jane Dec 20, 2016 06:27 by Interface Page 2 of 11 pMD [facility] EMERGENCY RECORD procedure, due to patient being confused. (03:45 ABWA) NURSING PROCEDURE: NURSE NOTES NURSES NOTES: Notes: SEIZURE PRECAUTIONS, SIDE RAILS PADDED, FAMILY AT BEDSIDE, SUCTION SET UP,. (02:37 ABWA) Notes: PATIENT ENTIRE BODY STIFF, MAKING, RESP 28, SPITTING, SALIVA COMING FROM MOUTH, PATIENT RELAXED, TRIED TO SUCTION, PATIENT BITE ON YANKER, PATIENT STIFFENIG UP THEN RELAXING, YANKER INTACT, BREATHING RETURN TO 16 EVEN AND UNLABORED, PATEINT OPEN EYES AND GIRLFRIEND IN ROOM EXPLAINED TO PATIENT WHERE HE WAS, PATIENT CLOSED EYES AND SNORING, HOB REMAINS ELEVATED. (03:05 ABMA) Notes: PATIENT BROUGHT TO FACILITY BY EMS AND [facility], PATIENT BECOMES COMBATIVE WHEN ANYONE TOUCHES HIM TO DO ANY PROCEDURE, FRIEND AT BEDSIDE HAS "CALMING EFFECT" ON PATIENT. (02:45 ABWA) Notes: PATIENT REFUSES TO USE URINAL WHILE IN BED, PATIENT STOOD UP WITH STANDBY ASSIST, URINATED OVER 1000 OUTPUT, PATIENT LAUGHING, PATIENT RETURNED TO BED, NAD. (02:55 ABWA) Notes: REPORT TO LACY RN, RESP EQUAL AND UNLABORED, GCS REMAINS 10, FAMILY AT BEDSIDE, NO FURTHER SEIZURE TYPE ACTIVITY,. (04:15 ABWA) Notes: PT ASLEEP IN BED. RR EVEN AND UNLABORED. NSR PER MONITOR. VITAL SIGNS STABLE. HOB ELEVATED. GCS 11. NAD. GIRLFRIEND AT BEDSIDE. (05:00 [facility]) Notes: 500MG KEPPRA IVP NOT GIVEN TO PATIENT BECAUSE PT WAS NOT AVAILABLE AT [facility]. MD KRIS MADE AWARE. PT TO RECEIVE KEPPRA AT [facility] ED PER . (05:35 [facility]) Notes: PATIENT TO CT, ALL MONITORS TO CT WITH PATIENT, RN WITH PATIENT TO CT, O2@2L VIA NC REMAIN ON PATIENT, CT COMPLTERED, PATIENT RETURN TO ROOM, ALL MONITORS IN PLACE, PATIENT COUGH X2 DURING CT, ABLE TO CLEAR SECRETIONS WITHOUT DIFFICULITY. (03:30 ABWA) Notes: call to pharmacy, informed by pharmacy we do not have iv keppra anywhere at [facility], informed dr. ponce, per Dr. Ponce inform the main in report keppra not given and needs be given when [facility]. Informed Lacy KNUTSON to include this in her report to the main. (05:53 ABWA) NURSING PROCEDURE: OXYGEN THERAPY (02:45 ABWA) OXYGEN THERAPY: Oxygen therapy indicated for desaturation, Prior to procedure, breath sounds clear, Oxygen saturation 90%, by adult/pediatric oxisensor, single pulse oximetry reading, via nasal cannula, Notes: O2 SATURATION DECREASE TO 88-90% WHEN PATIENT ASLEEP AND SNORING, WILL INCREASE TO 96-98% WHEN AWAKE. FOLLOW-UP: After procedure, oxygen saturation 100%, After procedure, breath sounds clear, Notes: O2 SATS [id number]% WHILE SLEEPING. NURSING PROCEDURE: TRANSPORT TO TESTS (03:51 [facility]PEA) TRANSPORT TO TESTS: Patient transported to CT scan, Accompanied by x-ray gis mapping technician, Accompanied by nurse, Transported with advanced life support care, Patient arrived in location at 0330, Patient &a-1R&a+25V*p+0X*b8994G*c202B*c15G*c2P*p-0X&a-25V&a+1R Name: Benjamin Marley : 1975 M41 MedRec: [id number] AcctNum: [id number] Prepared: Jane Dec 20, 2016 06:27 by Interface Page 3 of 11 [facility] EMERGENCY RECORD departed location at 0347. ORDER DETAILS Order Name: Cardiac Profile w/CKMB & Troponin - I, Status: Active, Time: 02:45 12/20/2016, User: AYLA, - Ordered for: MD Ponce Joshua, - Entered by: MD Ponce Joshua - Jane Dec 20, 2016 02:45, - Quantity: 1, Order Name: CBC with Differential, Status: Active, Time: 02:45 12/20/2016, User: AYLA, - Ordered for: MD Ponce Joshua, - Entered by: MD Ponce Joshua - Jane Dec 20, 2016 02:45, - Quantity: 1, Order Name: CK (CPK), Status: Active, Time: 02:45 12/20/2016, User: AYLA, - Ordered for: MD Ponce Joshua, - Entered by: MD Ponce Joshua - Jane Dec 20, 2016 02:45, - Quantity: 1, Order Name: Comprehensive Metabolic Panel, Status: Active, Time: 02:45 12/20/2016, User: AYLA, - Ordered for: MD Ponce Joshua, - Entered by: MD Ponce Joshua - Sun Dec 20, 2016 02:45, - Quantity: 1, Order Name: CT Brain WO Con, Status: Active, Time: 02:46 12/20/2016, User: AYLA, - Ordered for: MD Ponce Joshua, - Entered by: MD Ponce Joshua - Sun Dec 20, 2016 02:46, - Quantity: 1, Order Name: Drug Screen, Serum, Status: Active, Time: 02:45 12/20/2016, User: AYLA, - Ordered for: MD Ponce Joshua, - Entered by: MD Ponce Joshua - Sun Dec 20, 2016 02:45, - Quantity: 1, Order Name: Drug Screen, Urine, Status: Active, Time: 02:45 12/20/2016, User: AYLA, - Ordered for: MD Ponce Joshua, - Entered by: MD Ponce Joshua - Sun Dec 20, 2016 02:45, - Quantity: 1, Order Name: EKG 12 Lead in Emergency Room, Status: Active, Time: 02:45 12/20/2016, User: AYLA, - Ordered for: MD Ponce Joshua, - Entered by: MD Ponce Joshua - Sun Dec 20, 2016 02:45, - Quantity: 1, Order Name: Lipase, Status: Active, Time: 02:45 12/20/2016, User: AYLA, - Ordered for: MD Ponce Joshua, - Entered by: MD Ponce Joshua - Sun Dec 20, 2016 02:45, - Quantity: 1, Order Name: Urinalysis w/ Rflx Microscopic, Status: Active, Time: 02:45 12/20/2016, User: AYLA, &a-1R&a+25V*p+0X*r6344M*c202B*c15G*c2P*p-0X&a-25V&a+1R Name: Benjamin Marley : 1975 M41 MedRec: [id number] AcctNum: [id number] Prepared: Jane Dec 20, 2016 06:27 by Interface Page 4 of 11 pMD [facility] EMERGENCY RECORD - Ordered for: MD Ponce Joshua, - Entered by: MD Ponce Joshua - Sun Dec 20, 2016 02:45, - Quantity: 1, Order Name: XR Chest 1 View Portable, Status: Active, Time: 02:45 12/20/2016, User: DEBORAHOZIEL, - Ordered for: MD Ponce Joshua, - Entered by: MD Ponce Joshua - Sun Dec 20, 2016 02:45, - Quantity: 1. MEDICATION ADMINISTRATION SUMMARY Drug Name: Keppra intravenous, Dose Ordered: 500 mg, Route: IV Piggy Back, Status: Held, Time: 05:53 12/20/2016, Drug Name: LORazepam injection, Dose Ordered: 1 mg, Route: IV Push, Status: Given, Time: 03:17 12/20/2016, Drug Name: sodium chloride 0.9 % intravenous, Dose Ordered: 1000 mL, Route: IV Fluid Infusion, Status: Given, Time: 02:45 12/20/2016, Detailed record available in Medication Service section. MEDICATION SERVICE Keppra intravenous: Order: Keppra intravenous (levetiracetam) - Dose: 500 mg : IV Piggy Back Ordered by: Marshall Ponce MD Entered by: MD Jane Avitia Dec 20, 2016 05:20 , Held by: Chelsey Jeffers RN WedDec 20, 2016 05:53 Reason: see nurses notes. LORazepam injection: Order: LORazepam injection (lorazepam) - Dose: 1 mg : IV Push Ordered by: Marshall Ponce MD Entered by: MD Jane Avitia Dec 20, 2016 03:15 Documented as given by: Chelsey Jeffers RN WedDec 20, 2016 03:17 Patient, Medication, Dose, Route and Time verified prior to administration. Amount given: 1MG, Amount wasted: 1MG, IV SITE #1 IVP, initial medication, Slowly, Catheter placement confirmed via flush prior to administration, IV site without signs or symptoms of infiltration during medication administration, No swelling during administration, No drainage during administration, IV flushed after administration, Correct patient, time, route, dose and medication confirmed prior to administration, Allergies confirmed and medications reviewed prior to administration, Patient in position of comfort, Side rails up, Cart in lowest position, Family at bedside. : Follow Up : _IV SITE #1:_, Patient in position of comfort, Side rails up, Cart in lowest position, Family at bedside, PATIENT REMAINS RESTING WITH EYES CLOSED, RESP EQUAL AND UNLABORED. (03:50 ABWA) sodium chloride 0.9 % intravenous: Order: sodium chloride 0.9 % intravenous (0.9 % sodium chloride) - Dose: 1000 mL : IV Fluid Infusion Schedule: Bolus &a-1R&a+25V*p+0X*h9640B*c202B*c15G*c2P*p-0X&a-25V&a+1R Name: Benjamin Marley : 1975 M41 MedRec: [id number] AcctNum: [id number] Prepared: [place] Dec 20, 2016 06:27 by Interface Page 5 of 11 [facility] EMERGENCY RECORD Ordered by: Marshall Ponce MD Entered by: Chelsey Jeffers RN [place] Dec 20, 2016 04:07 Documented as given by: Chelsey Jeffers RN [place] Dec 20, 2016 02:45 Patient, Medication, Dose, Route and Time verified prior to administration. IV SITE #1 IV fluids established for hydration, IV SITE #1 into right antecubital, IV SITE #1 1st bag hung, amount 1 Liter hung, IV SITE #1 Rate of bolus, wide open, via primary tubing, Catheter placement confirmed via flush prior to administration, IV site without signs or symptoms of infiltration during medication administration, No swelling during administration, No drainage during administration, IV flushed after administration, Correct patient, time, route, dose and medication confirmed prior to administration, Allergies confirmed and medications reviewed prior to administration, Patient in position of comfort, Side rails up, Cart in lowest position, Family at bedside, IVF IN PLACE AUTOMOTIVE SERVICE ASSISTANT. : Follow Up : _IV SITE #1:_, 031 IVF NOT INFUSING, IV SITE RAC NO LONGER PATENT, IV SITE DC, FLUIDS CHANNED TO NEW SITE RAC. (03:15 ABWA) HPI ALCOHOL ABUSE/SUBSTANCE ABUSE CHIEF COMPLAINT: Patient presents for evaluation of alcohol abuse, Patient presents for evaluation of mental status changes, Patient presents for evaluation of Pt was drinking an unknown amount this eveing and became weak and unsteady with a few episodes of confusion. Pt then went out with friends. Called girlfriend and reported he had had a seizure and was coming home. On arrival pt was very groggy and mostly unresponsive so girlfriend called 911. No witnessed seizure activity. (02:47 JLOY) HISTORIAN: History provided by patient's family, Additional history obtained from EMS. (02:47 JLOY) LOCATION: No localizing symptoms. (02:47 JLOY) TIME COURSE: Patient unable to describe onset of symptoms, There has been no change in the patient's symptoms over time. (02:47 JLOY) ASSOCIATED WITH: Associated with agitation, Associated with seizures. (02:47 JLOY) EXACERBATED BY: Patient's condition exacerbated by history of previous episodes. (02:47 JLOY) RELIEVED BY: Patient's condition relieved by nothing. (02:47 JLOY) E/M CAVEAT: Emergency room caveat invoked due to intoxicated patient. (02:49 JLOY) PAST MEDICAL HISTORY MEDICAL HISTORY: Flu vaccine up to date, Tetanus immunization up to date, Pneumococcal vaccine not up to date, Past medical history includes neurological disease, ischemic cerebral vascular accident, generalized seizures, stomach ulcer. (02:41 ABWA) MALE SURGICAL HISTORY: right thumb surgery. (02:41 ABWA) &a-1R&a+25V*p+0X*h9450J*c202B*c15G*c2P*p-0X&a-25V&a+1R Name: Benjamin Marley : 1975 M41 MedRec: [id number] AcctNum: [id number] Prepared: Jane Dec 20, 2016 06:27 by Interface Page 6 of 11 pMD [facility] EMERGENCY RECORD PSYCHIATRIC HISTORY: no history of suicidal ideations, No history of suicide attempts, No history of hallucinations, No history of homicidal ideations, No history of violence towards others, No previous psychiatric history. (02:41 ABWA) SOCIAL HISTORY: Patient currently uses tobacco, smokes cigarettes, Patient drinks socially, every week, Patient denies drug use,. Lives at home, alone,. Patient currently uses tobacco, smokes cigarettes, daily, Patient smokes 1 pack per day. (02:41 ABWA) NOTES: Nursing records reviewed, Agree with nursing records. (02:53 [facility]) PHYSICAL EXAM (02:49 [facility]) CONSTITUTIONAL: Vital signs reviewed, Patient, confused, responsive to painful stimuli, Pt lethargic. Responds to tactile stimulation but rare intelligible words. Mostly he pushes the examiner's hand away and then goes back to sleep. HEAD: Head exam included findings of head atraumatic, normocephalic. EYES: Eye exam included findings of eyelids normal to inspection, Pupils equally round and reactive to light, Conjunctiva, injected bilaterally. ENT: Ear exam included findings of, left external ear normal, right external ear normal, tympanic membrane with effusion on left, tympanic membrane with effusion on the right, Mouth exam included findings of, mucous membranes dry. NECK: Neck exam included findings of normal range of motion, Trachea midline, no jugular venous distention, no cervical adenopathy. RESPIRATORY CHEST: Respiratory exam included findings of no respiratory distress, Breath sounds clear, No wheezing, No rales, No rhonchi, Chest exam included findings of chest movement symmetrical. CARDIOVASCULAR: Cardiovascular exam included findings of heart rate regular rate and rhythm, Heart sounds normal. ABDOMEN MALE: Abdominal exam included findings of abdomen tender, Pt pushes the examiners hands away when palpated on any part of his abdomen but soft to touch and no guarding., Bowel sounds normal, no distension. BACK: Back exam included findings of normal inspection. UPPER EXTREMITY: Upper extremity exam included findings of inspection normal, Radial pulse normal, no cyanosis, no clubbing, no edema. LOWER EXTREMITY: Lower extremity exam included findings of inspection normal, no edema. NEURO: [place] coma scale, Eye opening: (2) - To pain, Verbal: (3) - Inappropriate words, Motor: (5) - Localizes Pain, GCS Total: 10, Speech, slurred. SKIN: Skin exam included findings of skin warm, dry, and normal in color. &a-1R&a+25V*p+0X*r1401M*c202B*c15G*c2P*p-0X&a-25V&a+1R Name: Benjamin Marley : 1975 M41 MedRec: [id number] AcctNum: [id number] Prepared: Jane Dec 20, 2016 06:27 by Interface Page 7 of 11 pMD [facility] EMERGENCY RECORD EVENTS TRANSFER: Triage to Emergency Emergency Room -04. (Jane Dec 20, 2016 02:37 ABWA) Removed from Emergency Emergency Room -04. (06:20 [facility]) DOCTOR NOTES TEXT: Pt had an episode of posturing with his whole body and heavy breathing consistent with seizure-like activity from previous visits. Resolved after a couple minutes. Ativan ordered. (03:17 [facility]) Dr. Mahajan accepted the transfer to [facility] ER. (05:20 [facility]) PROBLEM LIST No recorded problems DIAGNOSIS (05:21 [facility]) FINAL: PRIMARY: Acute alcohol intoxication, ADDITIONAL: Seizure. DISPOSITION PATIENT: Disposition Type: Transfer, Disposition: Transfer to [facility]. (05:21 JL) Patient left the department. (06:20 [facility]) PRESCRIPTION No recorded prescriptions IMAGING *EKG: Image captured from scanner. (05:32 [facility]) *MEMORANDUM OF TRANSFER: Image captured from scanner. (05:33 [facility]) TRANSFER CONSENT: Image captured from scanner. (05:36 [facility]) ADMIN DIGITAL SIGNATURE: MD Kris, Marshall. (05:21 JL) ZENIA Jeffers, Chelsey. (05:51 ABWA) ZENIA Jeffers, Chelsey. (06:26 ABMA) RESULTS (04:56 [facility]) LABORATORY: Drug Screen, Urine Collection DT: Jane Dec 20, 2016 04:24, THC/Cannabinoid Screen Not Detected , Range (NotDetected), Phencyclidine (PCP) Not Detected , Range (NotDetected), Cocaine Metabolite Screen Not Detected , Range (NotDetected), Methamphetamine Not Detected , Range (NotDetected), Opiate Screen Not Detected , Range (NotDetected), Amphetamine Not Detected , Range (NotDetected), Benzodiazepine Screen Not Detected , Range (NotDetected), Tricyclic Screen Not Detected , Range (NotDetected), &a-1R&a+25V*p+0X*v7877H*c202B*c15G*c2P*p-0X&a-25V&a+1R Name: Benjamin Marley : 1975 M41 MedRec: [id number] AcctNum: [id number] Prepared: Jane Dec 20, 2016 06:27 by Interface Page 8 of 11 pMD [facility] EMERGENCY RECORD Methadone Not Detected , Range (NotDetected), Barbiturates Screen Not Detected , Range (NotDetected), Oxycodone Screen Not Detected , Range (NotDetected), Propoxyphene Screen Not Detected , Range (NotDetected), Drug Screen Cutoff , Range (), The [place] Profile-V Panel for Qualitative Drugs of Abuse assays are for, presumptive screening testing only. The drug class and detection limits, are as follows: Drug Class Detection Limit Amphetamine , 500 ng/mL* Barbiturates 200 ng/mL , Benzodiazepines 150 ng/mL* Cocaine 150 ng/mL*, Methamphetamine 500 ng/mL* Methadone 200, ng/mL* Opiates 100 ng/mL* Oxycodone , 100 ng/mL PCP 25 ng/mL Propoxyphene , 300 ng/mL Tricyclic Antidepressants 300 ng/mL Cannabinoids (THC) , 50 ng/mL Tests which yield a presumptive positive result must be , tested using a more specific alternate chemical method in order to obtain, a confirmed analytical result. Additional confirmation and identification, may be ordered on a routine basis, if desired. Presumptive positive urines, are held for two weeks. . Urine Microscopic Collection DT: [place] Dec 20, 2016 04:24, RBC/HPF None Seen HPF, Range (0-3), *WBC/HPF 4-6 - H HPF, Range (0-3), Squamous Epithelial 0-3 HPF, Range (0-3), Bacteria/HPF Rare-Few HPF, Range (None Seen). Urinalysis w/ Rflx Microscopic Collection DT: [place] Dec 20, 2016 04:24, Color Yellow , Range (Yellow), Clarity Clear , Range (Clear), Specific [place], Urine 1.005 , Range (1.002-1.036), pH, Urine 5.5 , Range (5.0-9.0), *Leukocyte Trace - H , Range (Negative), Nitrite Negative , Range (Negative), Protein, Urine (Dipstick) Negative mg/dL, Range (Neg-Trace), Glucose, Urine (Dipstick) Negative mg/dL, Range (Negative), Ketone, Urine Negative mg/dL, Range (Negative), Urobilinogen 0.2 mg/dL, Range (0.2-1.0), Bilirubin Negative , Range (Negative), Blood, Urine Negative , Range (Negative). Lipase Collection DT: WedDec 20, 2016 03:11, Lipase 43 U/L, Range (8-78). &a-1R&a+25V*p+0X*z4880B*c202B*c15G*c2P*p-0X&a-25V&a+1R Name: Benjamin Marley : 1975 M41 MedRec: [id number] AcctNum: [id number] Prepared: WedDec 20, 2016 06:27 by Interface Page 9 of 11 pMD [facility] EMERGENCY RECORD Drug Screen, Blood Collection DT: [place] Dec 20, 2016 03:11, *Acetaminophen Less than 3.0 - L mcg/mL, Range (10.0-30.0), Therapeutic Range: 10.0 - 30.0 ug/mL Toxic Range: Possible, toxicity: 150 - 200 ug/mL Probable toxicity: Greater than 200, ug/mL *IMPORTANT TESTING INFORMATION* The half-life of NAC is 2, hours. The total NAC clearance is 5.6 hours for adults and 11 hours for, Newborns. Testing acetaminophen levels prior to a reasonable time frame, for clearance can cause falsely decreased acetaminophen levels. , Alcohol 239 mg/dL, Range (Less than 10), The pharmacological response to blood alcohol levels may vary from, individual to individual. Negative: Less than 10, mg/dL Toxic: 50 - 100 mg/dL , Depression of TECHNICIAN PREVENTATIVE MEDICINE: Greater than 100 mg/dL , Fatalities reported: Greater than 400 mg/dL , *Salicylate Less than 5.0 - L mg/dL, Range (15.0-30.0). CK (CPK) Collection DT: WedDec 20, 2016 03:11, *CK (CPK) 282 - H U/L, Range (30-200). Comprehensive Metabolic Panel Collection DT: [place] Dec 20, 2016 03:11, Sodium 143 mmol/L, Range (136-145), Potassium 3.9 mmol/L, Range (3.5-5.1), Chloride 107 mmol/L, Range (98-107), *Carbon Dioxide 19 - L mmol/L, Range (22-29), *Anion Gap 21 - H mmol/L, Range (10-20), BUN (Urea Nitrogen) 15 mg/dL, Range (8.9-20.6), Creatinine 1.04 mg/dL, Range (0.7-1.3), Estimated GFR-MDRD Greater than 90 , Reference Range for Estimated GFR: Greater than 90, mL/min/1.73 m2 NOTE: The MDRD equation has not been validated for use, with the elderly (over 70 years of age), women, patients with, serious comorbid condition or persons with extremes of body size, muscle, mass, or nutritional status. , Glucose 85 mg/dL, Range (70-105), Calcium 9.4 mg/dL, Range (7.8-10.44), Bilirubin, Total 0.6 mg/dL, Range (0.2-1.2), Protein, Total 8.2 g/dL, Range (6.0-8.3), NOTE: Plasma values are &a-1R&a+25V*p+0X*x3334L*c202B*c15G*c2P*p-0X&a-25V&a+1R Name: Benjamin Marley : 1975 1 MedRec: [id number] AcctNum: [id number] Prepared: Jane Dec 20, 2016 06:27 by Interface Page 10 of 11 pMD [facility] EMERGENCY RECORD generally 0.3 to 0.5 g/dL higher than serum values, due to the presence of fibrinogen. , Albumin 4.6 g/dL, Range (3.5-5.0), *Globulin 3.6 - H g/dL, Range (2.4-3.5), Alb/Glob Ratio 1.3 g/dL, Range (1.2-2.2), Alkaline Phosphatase 69 U/L, Range (40-150), AST (SGOT) 26 U/L, Range (5-34), ALT (SGPT) 32 U/L, Range (0-55). Cardiac Profile w/CKMB & TropI Collection DT: [place] Dec 20, 2016 03:11, CKMB 2.5 ng/mL, Range (0-6.6), *Troponin I 0.094 - H ng/mL, Range (< 0.028), Reference Range , 0.00 - 0.028 ng/mL Negative 0.029 - 0.29 ng/mL , Indeterminate Greater or Equal to 0.3 ng/mL Strongly suggests DE , . CBC with Differential Collection DT: [place] Dec 20, 2016 03:11, White Blood Cell (WBC) Count 10.8 thou/uL, Range (4.8-10.8), *Red Blood Cell (RBC) Count 6.65 - H mill/uL, Range (4.70-6.10), Hemoglobin 14.8 g/dL, Range (14.0-18.0), Hematocrit 46.3 %, Range (42.0-52.0), *Mean Corpuscular Volume 69.7 - L fl, Range (80.0-94.0), *Mean Corpuscular Hemoglobin 22.3 - L pg, Range (27.0-31.0), Mean Corpuscular HGB CONC 32.0 g/dL, Range (32.0-36.0), RBC Distribution Width 13.9 %, Range (11.5-14.5), Platelet Count 358 thou/uL, Range (130-400), *Mean Platelet Volume 6.2 - L fL, Range (7.4-10.4), %Neutrophils 43.6 %, Range (42.0-75.0), %Lymphocytes 47.5 %, Range (21.0-51.0), %Monocytes 5.6 %, Range (0.0-10.0), %Eosinophils 2.5 %, Range (0.0-10.0), %Basophils 0.8 %, Range (0.0-1.0), #Neutrophils 4.7 thou/uL, Range (1.40-6.50), *#Lymphocytes 5.2 - H thou/uL, Range (1.20-3.40), *#Monocytes 0.6 - H thou/uL, Range (0.11-0.59), #Eosinphils 0.3 thou/uL, Range (0.0-0.7), #Basophils 0.1 thou/uL, Range (0.0-0.2), Microcytosis MODERATE=15-30 cells (100X), Range (0-5/hpf), Ovalocytes SLIGHT = 2-5 cells (100X), Range (0-1/hpf), Tear Drops SLIGHT = 2-5 cells (100X), Range (0-1/hpf), PLT Morphology Comment Appears Adequate . Silverio: LINETTE=ZENIA Jeffers, Chelsey CABRERAOY=MD Kris, Marshall VALDEZ=MO Chao Kim LKRC=ZENIA Garcia, Lacy &a-1R&a+25V*p+0X*s7178N*c202B*c15G*c2P*p-0X&a-25V&a+1R Name: Benjamin Marley Kim : 1975 M41 MedRec: [id number] AcctNum: [id number] Prepared: Jane Dec 20, 2016 06:27 by Interface Page 11 of 11 pMD MTDD
--- NOTE | 2016-12-20 08:28 | RAD ---
SINGLE VIEW OF THE CHEST: COMPARISON: 05/16/16. HISTORY: Vomiting and passing out with altered mental status. Alcohol intoxication. FINDINGS: Single view of the chest shows a normal sized cardiomediastinal silhouette. There is no evidence of consolidation, mass, or pleural effusion. The bones are unremarkable. IMPRESSION: No evidence of acute cardiopulmonary disease. POS: [facility]
--- NOTE | 2016-12-20 14:31 | CT ---
PRELIMINARY REPORT/[facility]/EMERGENCY AFTER HOURS PROCEDURE: EXAM: CT Head Without Intravenous Contrast. CLINICAL HISTORY: 41 years old, male; Signs and symptoms; Altered mental status/memory loss; Patient HX: Altered menta l status with seizures. Passed out; TECHNIQUE: Axial computed tomography images of the head/brain without intravenous contrast. COMPARISON: No relevant prior studies available. FINDINGS: Brain: Unremarkable. No hemorrhage. No significant white matter disease. No edema. Ventricles: Unremarkable. No ventriculomegaly. Bones/joints: Unremarkable. No acute fracture. Soft tissues: Unremarkable. Sinuses: Partial opacification of the ethmoid air cells is equivocal for sinusitis. Mastoid air cells: Unremarkable as visualized. No mastoid effusion. IMPRESSION: Partial opacification of the ethmoid air cells is equivocal for sinusitis. Thank you for allowing us to participate in the care of your patient. Dictated and Authenticated by: Tucker Ramos MD 12/20/2016 4:01 AM Central Time ([place] \T\ [place]) FINAL REPORT EMERGENT AFTER HOURS CT OF THE BRAIN WITHOUT CONTRAST: FINDINGS/IMPRESSION: I agree with the findings and impression given in the preliminary report per [facility] physician. No evidence of acute intracranial abnormality. POS: [facility]
== END 2016-12-20 05:55 | disposition short-term general hospital (02) ==
LOC: NAV ERS 02:34
DX: F10.129 Alcohol abuse with intoxication, unspecified (principal); R56.9 Unspecified convulsions; F17.210 Nicotine dependence, cigarettes, uncomplicated
CPT/HCPCS: 36415; 70450; 71010; 80053; 80306; 80307; 81003; 81015; 82550; 82553; 83690; 84484; 85025; 93005; 96361; 96374; J2060

== ENCOUNTER 2017-06-05 09:15 | Emergency (ER) | payer OTHER ==
[2017-06-05 10:11] LABS: #Basophils 0.1 thou/uL (0.0-0.2); #Eosinphils 0.3 thou/uL (0.0-0.7); #Lymphocytes 3.1 thou/uL (1.20-3.40); #Monocytes 0.7 thou/uL (0.11-0.59); #Neutrophils 3.6 thou/uL (1.40-6.50); %Basophils 1.3 % (0.0-1.0); %Eosinophils 3.3 % (0.0-10.0); %Lymphocytes 39.6 % (21.0-51.0); %Monocytes 9.4 % (0.0-10.0); %Neutrophils 46.4 % (42.0-75.0); Hemoglobin 14.3 g/dL (14.0-18.0); Mean Corpuscular HGB CONC 31.3 g/dL (32.0-36.0); Mean Corpuscular Hemoglobin 21.5 pg (27.0-31.0); Mean Corpuscular Volume 68.8 fl (80.0-94.0); Mean Platelet Volume 7.1 fL (7.4-10.4); Platelet Count 276 thou/uL (130-400); Red Blood Cell (RBC) Count 6.63 mill/uL (4.70-6.10); White Blood Cell (WBC) Count 7.8 thou/uL (4.8-10.8)
[2017-06-05 10:18] LABS: ALT (SGPT) 37 U/L (8-55); AST (SGOT) 25 U/L (5-34); Albumin 4.5 g/dL (3.5-5.0); Alkaline Phosphatase 55 U/L (40-150); Anion Gap 17 mmol/L (10-20); BUN (Urea Nitrogen) 9 mg/dL (8.9-20.6); Bilirubin, Total 0.9 mg/dL (0.2-1.2); CK (CPK) 240 U/L (30-200); Calc. Creatinine Clearance 0 mL/min (70-130); Calcium 8.8 mg/dL (7.8-10.44); Carbon Dioxide 21 mmol/L (22-29); Chloride 108 mmol/L (98-107); Estimated GFR-MDRD Greater than 90; Globulin 2.7 g/dL (2.4-3.5); Glucose 97 mg/dL (70-105); Protein, Total 7.2 g/dL (6.0-8.3); Sodium 142 mmol/L (136-145)
[2017-06-05 10:19] LABS: CKMB 1.4 ng/mL (0-6.6); Troponin I Less than 0.010 ng/mL (< 0.028)
[2017-06-05] MEDS ORDERED: Ketorolac Tromethamine 30 MG/ML VIAL ONE (10:31)
--- NOTE | 2017-06-05 10:56 | RAD ---
SINGLE VIEW OF CHEST AND LEFT RIB SERIES: Date: )06/05/17 COMPARISON: None. HISTORY: Cough and left lateral chest wall pain for 3 days. FINDINGS: A single view of the chest and multiple views of the left ribs shows no evidence of displaced rib fr acture. No underlying pleural thickening or pneumothorax seen. No expansile rib lesions are present. The cardiomediastinal silhouette is normal in size. There is no evidence of consolidation, mass, or pleural effusion. IMPRESSION: Unremarkable exam. POS: [facility]
== END 2017-06-05 10:36 | disposition home or self-care (01) ==
LOC: NAV ERS 09:15
DX: R07.89 Other chest pain (principal); I63.9 Cerebral infarction, unspecified; R56.9 Unspecified convulsions; F17.210 Nicotine dependence, cigarettes, uncomplicated
CPT/HCPCS: 80053; 82550; 82553; 84484; 85025; 93005; 96374; J1885

== ENCOUNTER 2019-07-28 17:49 | Emergency (ER) | payer OTHER ==
[2019-07-28] MEDS ORDERED: Fluorescein Opthalmic Strip ONE (17:56)
== END 2019-07-28 18:30 | disposition home or self-care (01) ==
LOC: NAV ERS 17:49
DX: S05.01XA Injury of conjunctiva and corneal abrasion without foreign body, right eye, initial encounter (principal); F17.210 Nicotine dependence, cigarettes, uncomplicated; Z86.73 Personal history of transient ischemic attack (TIA), and cerebral infarction without residual deficits; X58.XXXA Exposure to other specified factors, initial encounter
CPT/HCPCS: 99283

== ENCOUNTER 2020-11-05 04:42 | Emergency (ER) | payer SELFPAY ==
[2020-11-05] MEDS ORDERED: Tetracaine HCl 0.5% Ophth Soln 2 ML Bottle ONE (04:54)
[2020-11-05] MEDS ORDERED: Fluorescein Opthalmic Strip ONE (04:54)
== END 2020-11-05 05:50 | disposition home or self-care (01) ==
LOC: NAV ERS 04:42
DX: T15.02XA Foreign body in cornea, left eye, initial encounter (principal); E11.9 Type 2 diabetes mellitus without complications; I10 Essential (primary) hypertension; F17.210 Nicotine dependence, cigarettes, uncomplicated; Z86.73 Personal history of transient ischemic attack (TIA), and cerebral infarction without residual deficits
CPT/HCPCS: 65220

== ENCOUNTER 2020-11-11 00:36 | Emergency (ER) | payer SELFPAY ==
[2020-11-11] MEDS ORDERED: Tetracaine HCl 0.5% Ophth Soln 2 ML Bottle ONE (01:03)
[2020-11-11] MEDS ORDERED: acetaZOLAMIDE Sodium 500 mg Vial ONE (01:54)
[2020-11-11] MEDS ORDERED: Cyclopentolate 1% Opth Drop 2 ML BOT ONE (01:59)
[2020-11-11] MEDS ORDERED: Water For Inject, Bacteriostat 30 ML ONE (02:09)
[2020-11-11] MEDS ORDERED: HYDROcodone/Acetaminophen 5/325 mg Tablet ONE (03:03)
== END 2020-11-11 03:08 | disposition home or self-care (01) ==
LOC: NAV ERS 00:36
DX: H53.142 Visual discomfort, left eye (principal); H40.052 Ocular hypertension, left eye; E11.9 Type 2 diabetes mellitus without complications; I10 Essential (primary) hypertension; F17.210 Nicotine dependence, cigarettes, uncomplicated; Z86.73 Personal history of transient ischemic attack (TIA), and cerebral infarction without residual deficits
CPT/HCPCS: 96374; 96375; J1120

== ENCOUNTER 2020-12-07 04:47 | Emergency (ER) | payer SELFPAY ==
[2020-12-07 05:46] LABS: Hemoglobin 14.3 g/dL (14.0-18.0); Mean Corpuscular HGB CONC 30.7 g/dL (32.0-36.0); Mean Corpuscular Hemoglobin 22.2 pg (27.0-31.0); Mean Corpuscular Volume 72.3 fL (78.0-98.0); Mean Platelet Volume 6.8 fL (7.4-10.4); Platelet Count 340 thou/uL (130-400); Red Blood Cell (RBC) Count 6.45 mill/uL (4.70-6.10); White Blood Cell (WBC) Count 8.6 thou/uL (4.8-10.8)
[2020-12-07 05:47] LABS: #Basophils 0.1 thou/uL (0.0-0.2); #Eosinphils 0.2 thou/uL (0.0-0.7); #Lymphocytes 4.1 thou/uL (1.20-3.40); #Monocytes 0.5 thou/uL (0.11-0.59); #Neutrophils 3.7 thou/uL (1.40-6.50); %Basophils 1.1 % (0.0-1.0); %Eosinophils 2.4 % (0.0-10.0); %Lymphocytes 47.5 % (21.0-51.0); %Monocytes 5.9 % (0.0-10.0); %Neutrophils 43.2 % (42.0-75.0); MDiff Complete? YES; Microcytosis SLIGHT = 6-15 cells (100X) (0-5/hpf); Platelet Morphology Comment Appears Adequate
[2020-12-07 05:49] LABS: ALT (SGPT) 23 U/L (8-55); AST (SGOT) 20 U/L (5-34); Albumin 4.5 g/dL (3.5-5.0); Alkaline Phosphatase 69 U/L (40-110); Anion Gap 18 mmol/L (10-20); BUN (Urea Nitrogen) 10 mg/dL (8.9-20.6); Bilirubin, Total 0.6 mg/dL (0.2-1.2); Calc. Creatinine Clearance 0 mL/min (70-130); Calcium 8.5 mg/dL (7.8-10.44); Carbon Dioxide 20 mmol/L (22-29); Chloride 109 mmol/L (98-107); Globulin 2.9 g/dL (2.4-3.5); Glucose 89 mg/dL (70-105); Potassium 3.7 mmol/L (3.5-5.1); Protein, Total 7.4 g/dL (6.0-8.3); Sodium 143 mmol/L (136-145)
[2020-12-07 05:50] LABS: Acetaminophen Less than 6.0 mcg/mL (10.0-30.0); Alcohol 233 mg/dL (Less than 10); Salicylate Less than 8.0 mg/dL (15.0-30.0)
--- NOTE | 2020-12-07 08:38 | CT ---
PRELIMINARY REPORT/[facility]/EMERGENCY AFTER HOURS PROCEDURE EXAM: CT Head Without Intravenous Contrast. CLINICAL HISTORY: EMS called for seizure activity. Patient has history of seizures and possible pseudoseizures in the p ast. History of ETOH abuse. They arrived to evaluate patient who was surrounded by friends/family. Per EMS, bystanders had reported he had seizure-like activity, leaned against a car, they assisted hi m to ground. No head strike or trauma noted. Patient was confused on scene, declined several attempts for further evaluation or vital signs. Declined blood glucose check ANESTHESIA ATTENDING in ED. Declines to g candy us further history here in ED. TECHNIQUE: Axial computed tomography images of the head/brain without intravenous contrast. COMPARISON: None FINDINGS: The ventricles, cisterns and sulci are within normal limits. No intra parenchymal or extra-axial mas s, hemorrhage, or mass effect. Smith and white-matter differentiation is within normal limits. Normal spherical shape of the globes. No significant abnormality within the imaged portions of the pa ranasal sinuses and mastoid air cells. No skull or facial fracture visualized. IMPRESSION: No acute intracranial abnormality. Consider additional imaging for worsening/persistent symptoms. ELECTRONICALLY SIGNED BY: Klaus Gallardo MD Dec 07, 2020 6:01:06 AM DIAGNO[employer] SALES DEVELOPER This report is intended for review by the ordering physician only, in accordance of law. If you recei ve this report in error, please call [facility] at [phone]. FINAL REPORT Final interpretation Head CT without contrast: 12/07/2020 COMPARISON: None. HISTORY: Seizures. FINDINGS: I agree with the preliminary report. There is mild mucosal thickening of the bilateral ethm oid air cells. There is no displaced calvarial fracture, intracranial hemorrhage, midline shift, or mass effect. IMPRESSION: No acute findings. If there is clinical concern for a seizure focus, follow-up brain MRI suggested. Code QA Transcribed Date/Time: 12/07/2020 8:47 AM
== END 2020-12-07 09:30 | disposition left against medical advice (07) ==
LOC: NAV ERS 04:47
DX: R56.9 Unspecified convulsions (principal); E11.9 Type 2 diabetes mellitus without complications; I10 Essential (primary) hypertension; F17.210 Nicotine dependence, cigarettes, uncomplicated; Z79.899 Other long term (current) drug therapy
CPT/HCPCS: 36416; 70450; 80053; 80185; 80307; 82140; 84443; 84484; 85025; 94760

== ENCOUNTER 2023-07-24 10:33 | Emergency (ER) | payer OTHER ==
[2023-07-24] MEDS ORDERED: Morphine 4 MG/ML VIAL ONE (11:10)
[2023-07-24] MEDS ORDERED: Ondansetron ODT 4 MG TAB ONE (11:10)
[2023-07-24] MEDS ORDERED: Ketorolac Tromethamine 30 MG/ML VIAL ONE (11:10)
== END 2023-07-24 11:45 | disposition home or self-care (01) ==
LOC: NAV ERS 10:33
DX: S83.92XA Sprain of unspecified site of left knee, initial encounter (principal); I10 Essential (primary) hypertension; E11.9 Type 2 diabetes mellitus without complications; X50.0XXA Overexertion from strenuous movement or load, initial encounter; Y93.89 Activity, other specified; Z79.899 Other long term (current) drug therapy
CPT/HCPCS: 96372; J1885; J2270; Q0162

== ENCOUNTER 2024-04-02 14:43 | Emergency (ER) | payer BC ==
[2024-04-02 15:24] LABS: Troponin I Less than 0.010 ng/mL (< 0.028)
[2024-04-02] MEDS ORDERED: Lorazepam 2 MG/ML VIAL ONE (15:25)
[2024-04-02 15:28] LABS: ALT (SGPT) 30 U/L (8-55); AST (SGOT) 26 U/L (5-34); Albumin 4.5 g/dL (3.5-5.0); Alkaline Phosphatase 86 U/L (40-110); Anion Gap 20 mmol/L (10-20); BUN (Urea Nitrogen) 5 mg/dL (8.9-20.6); Bilirubin, Total 0.9 mg/dL (0.2-1.2); Calc. Creatinine Clearance 0 mL/min (70-130); Calcium 9.5 mg/dL (7.8-10.44); Carbon Dioxide 18 mmol/L (22-29); Chloride 101 mmol/L (98-107); Estimated GFR 93; Globulin 3.2 g/dL (2.4-3.5); Glucose 393 mg/dL (70-105); Protein, Total 7.7 g/dL (6.0-8.3); Sodium 135 mmol/L (136-145)
[2024-04-02 15:29] LABS: Acetaminophen Less than 10 mcg/mL (10.0-30.0); Alcohol 211.5 mg/dL (Less than 10); Lipase 85 U/L (8-78); Magnesium 1.9 mg/dL (1.6-2.6); Salicylate Less than 8.0 mg/dL (15.0-30.0)
[2024-04-02 15:30] LABS: Prothrombin Time 13.2 sec (12.0-14.7)
[2024-04-02 15:31] LABS: PTT 26.6 sec (22.9-36.1)
[2024-04-02 15:36] LABS: Hematocrit 47.3 % (42.0-52.0); Hemoglobin 13.8 g/dL (14.0-18.0); Mean Corpuscular HGB CONC 29.1 g/dL (32.0-36.0); Mean Corpuscular Hemoglobin 20.6 pg (27.0-31.0); Mean Corpuscular Volume 70.6 fl (78.0-98.0); Mean Platelet Volume 7.4 fL (7.4-10.4); Platelet Count 293 10x3/uL (130-400); RBC Distribution Width 14.4 % (11.5-14.5); White Blood Cell (WBC) Count 10.7 10x3/uL (4.8-10.8)
[2024-04-02 16:06] LABS: Eosinophils 3 % (0-10); Lymphocytes 53 % (21-51); MDiff Complete? YES; Monocytes 3 % (0-10); Neutrophil 41 % (42-75); Platelet Adequacy Comment Appears Adequate
[2024-04-02] MEDS ORDERED: levETIRAcetam 500 MG (5 mL) VIAL ONE (16:56)
[2024-04-02] MEDS ORDERED: Sodium Chloride 0.9% 100 ML ONE (16:57)
[2024-04-02 18:20] LABS: Troponin I Less than 0.010 ng/mL (< 0.028)
[2024-04-02] MEDS ORDERED: Sodium Chloride 0.9% 1,000 ML ONE (18:36)
== END 2024-04-02 21:27 | disposition left against medical advice (07) ==
LOC: NAV ERS 14:43
DX: R55 Syncope and collapse (principal); F10.129 Alcohol abuse with intoxication, unspecified; R53.1 Weakness; R56.9 Unspecified convulsions; E11.9 Type 2 diabetes mellitus without complications; I10 Essential (primary) hypertension; F17.210 Nicotine dependence, cigarettes, uncomplicated
CPT/HCPCS: 36416; 70450; 71045; 80053; 80307; 83690; 83735; 83880; 84484; 85025; 85610; 85730; 93005; 94760; 96374; 96375; 36415-59; J1953; J2060; J7050